=== PATIENT | male | born 1985 | race Caucasian/White ===

== ENCOUNTER 2018-11-28 11:33 | Observation (INO) ==
[2018-11-28] MEDS ORDERED: ZOFRAN INJ 4 MG VIAL IVP PRN (13:27)
[2018-11-28 14:37] VITALS: BMI 41.8
[2018-11-28 14:59] LABS: BASOPHILS % (AUTO) 0.6 % (0.2-1.0); EOSINOPHILS # (AUTO) 0.6 x10^3/uL (0.0-0.2); EOSINOPHILS % (AUTO) 7.4 % (0.9-2.9); HEMATOCRIT 39.7 % (42.0-54.0); HEMOGLOBIN 13.5 g/dL (13.5-18.0); LYMPHOCYTES # (AUTO) 1.9 X10^3/uL (1.3-2.9); LYMPHOCYTES % (AUTO) 24.8 % (21.0-51.0); MEAN CORPUSCULAR HEMOGLOBIN 28.3 pg (27.0-34.0); MEAN CORPUSCULAR HGB CONC 34.1 g/dL (33.0-35.0); MEAN PLATELET VOLUME 7.7 fL (7.4-11.0); MONOCYTES # (AUTO) 0.8 x10^3/uL (0.3-0.8); MONOCYTES % (AUTO) 9.7 % (0.0-13.0); NEUTROPHILS # (AUTO) 4.5 x10^3/uL (2.2-4.8); NEUTROPHILS % (AUTO) 57.5 % (42.0-75.0); PLATELET COUNT 226 X10^3/uL (150.0-450.0); RED BLOOD COUNT 4.78 X10^6/uL (4.7-6.0); WHITE BLOOD COUNT 7.9 X10^3/uL (3.6-10.0)
[2018-11-28 15:11] LABS: ALANINE AMINOTRANSFERASE 74 Units/L (12-78); ALBUMIN 3.2 g/dL (3.4-5.0); ALKALINE PHOSPHATASE 131 Units/L (46-116); AMYLASE 26 Units/L (25-115); ASPARTATE AMINO TRANSFERASE 61 Units/L (15-37); BLOOD UREA NITROGEN 8 mg/dL (7-18); CALCIUM 8.3 mg/dL (8.5-10.1); CARBON DIOXIDE 25.6 mmol/L (21-32); CHLORIDE 104 mmol/L (98-107); COR CA(FOR HYPOALB) 8.9 mg/dL (8.5-10.1); CREATININE 0.83 mg/dL (0.70-1.30); LIPASE 47 Units/L (73-393); SODIUM 139 mmol/L (136-145); TOTAL PROTEIN 7.1 g/dL (6.4-8.2); eGFR NON BLACK RACES > 60 (>60)
[2018-11-28] MEDS: NS 1000 ML 1,000 ML IV SCH (15:55)
--- NOTE | 2018-11-28 18:26 | DR.UPDATE ---
H&P Update History and Physical Update: History and Physical reviewed and patient examined. Changes noted: Yes with the following: PRESENTED TO THE OFFICE TODAY WITH COMPLAINTS OF ABDOMINAL PAIN, FEVER, VOMITING, AND DIARRHEA. SYMPTOMS REPORTEDLY STARTED FOUR DAYS PRIOR TO ARRIVAL. HE REPORTS TAKING IMMODIUM AND PEPTO BISMOL AT HOME WITHOUT IMPROVEMENT IN SYMPTOMS. WE ADMITTED PATIENT TO THE HOSPITAL FOR FURTHER EVALUATION AND TREATMENT. ON ARRIVAL, VITALS WERE 98.3-79-18-97%-139/93. LABS WERE OBTAINED. ABNORMAL LAB VALUES INCLUDE THE FOLLOWING: HCT 39.7, CALCIU 8.3, AST 61, ALK PHOS 131, ALBUMIN 3.2, LIPASE 47. WE WILL OBTAIN URINALYSIS AND STOOL STUDIES. WE WILL ALSO OBTAIN AN ABDOMINAL ULTRASOUND AND AN ABDOMEN/PELVIS CT WITH CONTRAST TO RULE OUT APPENDICITIS. OTHERWISE, WE PLAN TO FOLLOW UP WITH AM LABS AND CONTINUE TO MONITOR.
[2018-11-28] MEDS: DEMEROL INJ IVP PRN (21:19)
[2018-11-28 22:03] LABS: BILIRUBIN,URINE NEGATIVE (NEGATIVE); BLOOD/HEMOGLOBIN,URINE 2+ (NEGATIVE); GLUCOSE, URINE NEGATIVE (NEGATIVE); KETONES,URINE NEGATIVE (NEGATIVE); LEUKOCYTE ESTERASE ,URINE 1+ (NEGATIVE); NITRITES,URINE NEGATIVE (NEGATIVE); PROTEIN,URINE 2+ (NEGATIVE); UROBILINOGEN,URINE NORMAL (NORMAL)
[2018-11-28 22:15] LABS: APPEARANCE,URINE CLEAR (CLEAR); BACTERIA,URINE NEGATIVE /HPF (NEGATIVE); COLOR,URINE YELLOW (YELLOW); RBC,URINE 0-2 /HPF (0-3); SQUAMOUS EPITHELIAL CELL,UR RARE /HPF (NEGATIVE)
[2018-11-29] MEDS: NS 1000 ML 1,000 ML IV SCH ×3 (00:47→09:46)
--- NOTE | 2018-11-29 01:12 | CT ---
CT abdomen and pelvis with contrast Indication: Abdominal pain, rule out appendicitis Comparison: None Technique: CT images of the abdomen and pelvis were obtained with IV and oral contrast. Automatic exposure control was utilized. Findings: The lung bases are clear. No acute osseous abnormality. The liver, gallbladder, spleen, stomach, duodenum, pancreas, adrenals, and kidneys are unremarkable. Early bilateral renal contrast excretion is noted. No radiopaque ureteral stone or hydroureter observed. No significant bowel thickening or dilatation of the lower GI tract. Normal appendix. The urinary bladder, prostate, and rectum are unremarkable. No free fluid or adenopathy. Impression: Unremarkable CT of the abdomen and pelvis. Reported By:
[2018-11-29] MEDS ORDERED: POTASSIUM CHL 40 MEQ/NS 0.45% 500 ML IV PRN (05:45)
[2018-11-29] MEDS ORDERED: KLOR-CON PO PRN (05:45)
[2018-11-29] MEDS ORDERED: K-DUR TAB 20 MEQ PO PRN (05:45)
[2018-11-29] MEDS ORDERED: POTASSIUM CHLORIDE LIQ 20 MEQ UDC PO PRN (05:45)
[2018-11-29] MEDS ORDERED: K-RIDER 10 MEQ/NS 100 ML 10 MEQ/100 ML BAG IV PRN (05:45)
[2018-11-29] MEDS ORDERED: POTASSIUM CHL 60 MEQ/NS 0.45% 500 ML IV PRN (05:45)
[2018-11-29] MEDS ORDERED: MICRO K EXTEN CAP 10 MEQ PO PRN (05:45)
[2018-11-29 06:16] LABS: BASOPHILS % (AUTO) 0.7 % (0.2-1.0); EOSINOPHILS # (AUTO) 0.5 x10^3/uL (0.0-0.2); EOSINOPHILS % (AUTO) 7.7 % (0.9-2.9); HEMATOCRIT 38.5 % (42.0-54.0); HEMOGLOBIN 13.1 g/dL (13.5-18.0); LYMPHOCYTES # (AUTO) 2.1 X10^3/uL (1.3-2.9); LYMPHOCYTES % (AUTO) 33.1 % (21.0-51.0); MEAN CORPUSCULAR HGB CONC 34.1 g/dL (33.0-35.0); MEAN CORPUSCULAR VOLUME 82.2 fL (80.0-100.0); MEAN PLATELET VOLUME 7.8 fL (7.4-11.0); MONOCYTES # (AUTO) 0.5 x10^3/uL (0.3-0.8); MONOCYTES % (AUTO) 7.6 % (0.0-13.0); NEUTROPHILS # (AUTO) 3.2 x10^3/uL (2.2-4.8); NEUTROPHILS % (AUTO) 50.9 % (42.0-75.0); PLATELET COUNT 212 X10^3/uL (150.0-450.0); RED BLOOD COUNT 4.69 X10^6/uL (4.7-6.0); RED CELL DISTRIBUTION WIDTH 14.3 % (11.6-16.5); WHITE BLOOD COUNT 6.3 X10^3/uL (3.6-10.0)
[2018-11-29 06:19] LABS: ALANINE AMINOTRANSFERASE 70 Units/L (12-78); ALBUMIN 2.9 g/dL (3.4-5.0); ALKALINE PHOSPHATASE 120 Units/L (46-116); ASPARTATE AMINO TRANSFERASE 55 Units/L (15-37); BLOOD UREA NITROGEN 6 mg/dL (7-18); CALCIUM 8.3 mg/dL (8.5-10.1); CARBON DIOXIDE 24.2 mmol/L (21-32); CHLORIDE 104 mmol/L (98-107); COR CA(FOR HYPOALB) 9.2 mg/dL (8.5-10.1); CREATININE 0.79 mg/dL (0.70-1.30); SODIUM 137 mmol/L (136-145); TOTAL PROTEIN 6.7 g/dL (6.4-8.2); eGFR NON BLACK RACES > 60 (>60)
--- NOTE | 2018-11-29 07:56 | US ---
History: Abdominal pain with nausea and vomiting Study: Ultrasound of the abdomen Comparison: CT abdomen and pelvis performed earlier this morning Findings: The right lobe of the liver measures 18 cm sagittal length without focal mass. There is normal echogenicity. There is appropriate flow in the hepatic and the portal veins. The gallbladder is normal in size without wall thickening or stone or sludge. The common hepatic duct measures 4.6 mm diameter. The right kidney measures 11 x 5 x 5.8 cm with cortical thickness of 2 cm and a resistive index of 0.62. The left kidney measures 11 x 5 x 4.8 cm with cortical thickness of 1.5 cm. The resistive index is 0.62. There is no renal mass or hydronephrosis. The spleen measures 14 x 6 x 6 cm. The visualized pancreas is unremarkable. The IVC is patent. There is no aortic aneurysm demonstrated. Impression: Mild enlargement of the liver and spleen, otherwise negative Reported By:
--- NOTE | 2018-11-29 10:38 | PCM.PROG ---
Progress Note - Progress Note for Day of Date of Exam: 11/29/18 - Subjective Subjective: WAS ADMITTED FOR COMPLAINTS OF ABDOMINAL PAIN, FEVER, VOMITING, AND DIARRHEA. TODAY, HE IS ALERT AND ORIENTED, LYING IN BED ON MORNING ROUNDS. HE CONTINUES WITH COMPLAINTS OF ABDOMINAL CRAMPING AND NAUSEA. HE DENIES ANY EPISODES OF DIARRHEA SINCE ADMISSION. ON EXAMINATION, HEART IS REGULAR IN RATE AND RHYTHM. BILATERAL LUNGS ARE NOTED WITH DIMINISHED LUNG SOUNDS THROUGHOUT. ABDOMEN IS ROUND, SOFT, AND NOTED WITH DIFFUSE TENDERNESS. HYPERACTIVE BOWEL SOUNDS ARE NOTED. HIS VITALS THIS MORNING ARE: 97.7-69-14-96%-121/66. LABS WERE OBTAINED. ABNORMAL LAB VALUES INCLUDE THE FOLLOWING: RBC 4.69, HGB 13.1, HCT 38.5, BUN 6, CALCIUM 8.3, AST 55, ALK PHOS 120, ALBUMIN 2.9. WE OBTAINED AN ABDOMEN/PELVIS CT WITH CONTRAST. IT REVEALED: Unremarkable CT of the abdomen and pelvis. ABDOMEN ULTRASOUND REVEALED: Mild enlargement of the liver and spleen, otherwise negative. HE IS CURRENTLY RE CEIVING NORMAL SALINE AT 100ML/HR, DEMEROL 25MG IV Q4H PRN, AND ZOFRAN 4MG IV Q4H PRN. TODAY, WE WILL START CIPRO 400MG IV Q12H, PROTONIX 40MG PO BID, GI COCKTAIL QID, AND BENTYL 20MG PO QID. WE WILL ATTEMPT TO COLLECT A STOOL CULTURE. OTHERWISE, WE WILL FOLLOW UP WITH AM LABS AND CONTINUE TO MONITOR. - Past Medical Family Social History Past Med/Fam/Surg Hx: No changes since H&P Allergies: Allergies No Known Drug Allergies Allergy (Verified 11/28/18 21:27) - Review of Systems ROS: No change since H&P - Vital Signs and I&O's Vital Signs: Temperature 97.7 F Pulse Rate [Right Brachial] 69 Respiratory Rate 14 Blood Pressure [Right Arm] 124/71 Blood Pressure [Left Arm] 121/66 O2 Sat by Pulse Oximetry 96 Intake and Output: Intake & Output 11/26/18 11/27/18 11/28/18 11/29/18 11:59 11:59 11:59 11:59 Intake Total 1518 / 1518 Balance 1518 / 1518 - Physical Exam Oriented: Normal Eyes: Normal Ear: Normal Nose: Normal Throat: Normal Respiratory: Diminished Cardiovascular: Normal : Normal Auscultation: Bowel Sounds: Increased Palpation: Normal Tenderness: Diffuse, Moderate. negative: Rebound, Guarding, Rigidity Skin: Normal Musculoskeletal: Normal Psychiatric: Normal Mood Description: Calm Affect: Normal Speech Pattern: Clear, Appropriate - Laboratory and Diagnostics Result Diagrams: 11/29/18 05:50 11/29/18 05:50 Labs: Laboratory WBC 6.3 X10^3/uL (3.6-10.0) 11/29/18 05:50 RBC 4.69 X10^6/uL (4.7-6.0) L 11/29/18 05:50 Hgb 13.1 g/dL (13.5-18.0) L 11/29/18 05:50 Hct 38.5 % (42.0-54.0) L 11/29/18 05:50 MCV 82.2 fL (80.0-100.0) 11/29/18 05:50 MCH 28.0 pg (27.0-34.0) 11/29/18 05:50 MCHC 34.1 g/dL (33.0-35.0) 11/29/18 05:50 RDW 14.3 % (11.6-16.5) 11/29/18 05:50 Plt Count 212 X10^3/uL (150.0-450.0) 11/29/18 05:50 MPV 7.8 fL (7.4-11.0) 11/29/18 05:50 Neut % (Auto) 50.9 % (42.0-75.0) 11/29/18 05:50 Lymph % (Auto) 33.1 % (21.0-51.0) 11/29/18 05:50 [place] % (Auto) 7.6 % (0.0-13.0) 11/29/18 05:50 Eos % (Auto) 7.7 % (0.9-2.9) H 11/29/18 05:50 Baso % (Auto) 0.7 % (0.2-1.0) 11/29/18 05:50 Neut # (Auto) 3.2 x10^3/uL (2.2-4.8) 11/29/18 05:50 Lymph # (Auto) 2.1 X10^3/uL (1.3-2.9) 11/29/18 05:50 [place] # (Auto) 0.5 x10^3/uL (0.3-0.8) 11/29/18 05:50 Eos # (Auto) 0.5 x10^3/uL (0.0-0.2) H 11/29/18 05:50 Baso # (Auto) 0.0 X10^3/uL (0.0-0.1) 11/29/18 05:50 Absolute Nucleated RBC 0.1 /100WBC 11/29/18 05:50 Sodium 137 mmol/L (136-145) 11/29/18 05:50 Corrected Sodium TNP 11/29/18 05:50 Potassium 3.9 mmol/L (3.5-5.1) 11/29/18 05:50 Chloride 104 mmol/L (98-107) 11/29/18 05:50 Carbon Dioxide 24.2 mmol/L (21-32) 11/29/18 05:50 BUN 6 mg/dL (7-18) L 11/29/18 05:50 Creatinine 0.79 mg/dL (0.70-1.30) 11/29/18 05:50 Est GFR (MDRD) Af Amer > 60 (>60) 11/29/18 05:50 Est GFR (MDRD) Non-Af > 60 (>60) 11/29/18 05:50 Glucose 89 mg/dL (65-99) 11/29/18 05:50 Calcium 8.3 mg/dL (8.5-10.1) L 11/29/18 05:50 Corrected Calcium 9.2 mg/dL (8.5-10.1) 11/29/18 05:50 Magnesium 1.8 mg/dL (1.7-2.9) 11/29/18 05:50 Total Bilirubin 0.60 mg/dL (0.2-1.0) 11/29/18 05:50 AST 55 Units/L (15-37) H 11/29/18 05:50 ALT 70 Units/L (12-78) 11/29/18 05:50 Alkaline Phosphatase 120 Units/L (46-116) H 11/29/18 05:50 Total Protein 6.7 g/dL (6.4-8.2) 11/29/18 05:50 Albumin 2.9 g/dL (3.4-5.0) L 11/29/18 05:50 Globulin 3.8 g/dL (2.5-4.5) 11/29/18 05:50 Albumin/Globulin Ratio 0.8 Ratio (1.1-2.1) L 11/29/18 05:50 Amylase 26 Units/L (25-115) 11/28/18 14:50 Lipase 47 Units/L (73-393) L 11/28/18 14:50 Specimen Type Clean catch urine 11/28/18 21:13 Urine Color Yellow (YELLOW) 11/28/18 21:13 Urine Appearance Clear (CLEAR) 11/28/18 21:13 Urine pH 5.0 (5.0 - 8.0) 11/28/18 21:13 Ur Specific [place] 1.005 (1.000-1.030) 11/28/18 21:13 Urine Protein 2+ (NEGATIVE) 11/28/18 21:13 Urine Glucose (UA) Negative (NEGATIVE) 11/28/18 21:13 Urine Ketones Negative (NEGATIVE) 11/28/18 21:13 Urine Occult Blood 2+ (NEGATIVE) 11/28/18 21:13 Urine Nitrite Negative (NEGATIVE) 11/28/18 21:13 Urine Bilirubin Negative (NEGATIVE) 11/28/18 21:13 Urine Urobilinogen Normal (NORMAL) 11/28/18 21:13 Ur Leukocyte Esterase 1+ (NEGATIVE) 11/28/18 21:13 Urine RBC 0-2 /HPF (0-3) 11/28/18 21:13 Urine WBC 0-2 /HPF (0-5) 11/28/18 21:13 Ur Squamous Epith Cells Rare /HPF (NEGATIVE) 11/28/18 21:13 Urine Bacteria Negative /HPF (NEGATIVE) 11/28/18 21:13 Ur Culture Indicated? No/not indicated 11/28/18 21:13
[2018-11-29] MEDS: LEVSIN/MAALOX/LIDOC VISC PO SCH ×4 (12:08→20:55)
[2018-11-29] MEDS: BENTYL CAP 10 MG PO SCH ×4 (12:09→21:05)
[2018-11-29] MEDS: CIPRO IV 400 MG PREMIX* 400 MG/200 ML IV.SOLN. IV SCH ×2 (12:09→21:06)
[2018-11-29] MEDS: PROTONIX INJ 40 MG VIAL IVP SCH ×2 (12:09→20:57)
[2018-11-29] MEDS: DEMEROL INJ IVP PRN (20:57)
[2018-11-30] MEDS: NS 1000 ML 1,000 ML IV SCH ×4 (00:34→09:38)
[2018-11-30 06:22] LABS: BASOPHILS % (AUTO) 0.5 % (0.2-1.0); EOSINOPHILS # (AUTO) 0.3 x10^3/uL (0.0-0.2); HEMATOCRIT 37.2 % (42.0-54.0); HEMOGLOBIN 12.5 g/dL (13.5-18.0); LYMPHOCYTES % (AUTO) 25.5 % (21.0-51.0); MEAN CORPUSCULAR HEMOGLOBIN 27.6 pg (27.0-34.0); MEAN CORPUSCULAR HGB CONC 33.5 g/dL (33.0-35.0); MEAN CORPUSCULAR VOLUME 82.2 fL (80.0-100.0); MEAN PLATELET VOLUME 7.9 fL (7.4-11.0); MONOCYTES # (AUTO) 0.8 x10^3/uL (0.3-0.8); MONOCYTES % (AUTO) 9.9 % (0.0-13.0); NEUTROPHILS # (AUTO) 4.7 x10^3/uL (2.2-4.8); NEUTROPHILS % (AUTO) 60.1 % (42.0-75.0); PLATELET COUNT 217 X10^3/uL (150.0-450.0); RED BLOOD COUNT 4.52 X10^6/uL (4.7-6.0); RED CELL DISTRIBUTION WIDTH 14.2 % (11.6-16.5); WHITE BLOOD COUNT 7.8 X10^3/uL (3.6-10.0)
[2018-11-30 06:32] LABS: ALANINE AMINOTRANSFERASE 59 Units/L (12-78); ALBUMIN 2.7 g/dL (3.4-5.0); ALKALINE PHOSPHATASE 143 Units/L (46-116); ASPARTATE AMINO TRANSFERASE 42 Units/L (15-37); BLOOD UREA NITROGEN 5 mg/dL (7-18); CALCIUM 8.1 mg/dL (8.5-10.1); CARBON DIOXIDE 26.7 mmol/L (21-32); CHLORIDE 103 mmol/L (98-107); COR CA(FOR HYPOALB) 9.1 mg/dL (8.5-10.1); COR NA(FOR HYPERGLY) 137 mmol/L (136-145); CREATININE 0.82 mg/dL (0.70-1.30); SODIUM 137 mmol/L (136-145); TOTAL PROTEIN 6.5 g/dL (6.4-8.2); eGFR NON BLACK RACES > 60 (>60)
[2018-11-30] MEDS: BENTYL CAP 10 MG PO SCH (09:33)
[2018-11-30] MEDS: PROTONIX INJ 40 MG VIAL IVP SCH (09:34)
[2018-11-30] MEDS: CIPRO IV 400 MG PREMIX* 400 MG/200 ML IV.SOLN. IV SCH (09:35)
[2018-11-30] MEDS: LEVSIN/MAALOX/LIDOC VISC PO SCH (09:40)
[2018-11-30 12:05] VITALS: BP 134/82
== END 2018-11-30 12:10 | disposition home or self-care (01) ==
LOC: MED/SURG
PROVIDERS: ADMIT Internal Medicine; ATTEND Internal Medicine
DX: R19.7 Diarrhea, unspecified; R11.2 Nausea with vomiting, unspecified; R16.0 Hepatomegaly, not elsewhere classified; R50.9 Fever, unspecified; R10.31 Right lower quadrant pain
CPT/HCPCS: 36415; 74177; 76700; 80053; 81001; 82150; 83690; 83735; 85025; 96367; 96374; A4216; A4222; C9113; G0378; J0744; J2175; J2405; J7030